=== PATIENT | male | born 1955 | race Caucasian/White ===

== ENCOUNTER 2017-11-07 10:07 | Inpatient (IN) | payer BC ==
--- NOTE | 2017-10-06 16:27 | PAT Medication Instructions ---
Service Date Oct 06, 2017. Current Home Medication List Acetaminophen (Tylenol), 650 MG PO Q6 PRN for Pain Amlodipine (Norvasc), 5 MG PO QAM Fluticasone Propionate (Nasal) (Flonase Allergy Relief), 1 SPRAY MARIA L QAM PRN for PRN Ibuprofen (Advil), 400 MG PO Q6 PRN for Pain Labetalol (Normodyne), 100 MG PO BID Omeprazole (Prilosec), 20 MG PO BID Medication Instructions For Your Scheduled Surgery - Check with surgeon for instructions: Ibuprofen (Advil), 400 MG PO Q6 PRN for Pain - Take the following medications the morning of surgery with a sip of water: Acetaminophen (Tylenol), 650 MG PO Q6 PRN for Pain (okay to take up to 4 hours prior to surgery if needed) Amlodipine (Norvasc), 5 MG PO QAM Fluticasone Propionate (Nasal) (Flonase Allergy Relief), 1 SPRAY MARIA L QAM PRN for PRN (if needed) Labetalol (Normodyne), 100 MG PO BID Omeprazole (Prilosec), 20 MG PO BID - Take the following medications as scheduled the night before surgery: Acetaminophen (Tylenol), 650 MG PO Q6 PRN for Pain (if needed) Labetalol (Normodyne), 100 MG PO BID Omeprazole (Prilosec), 20 MG PO BID Fluticasone Propionate (Nasal) (Flonase Allergy Relief), 1 SPRAY MARIA L QAM PRN for PRN (if needed) If you have any questions please call us at [phone] or [phone] or [phone]
--- NOTE | 2017-11-06 09:40 | HISTORY & PHYSICAL EXAMINATION ---
DATE OF ADMISSION: 11/07/2017 PREOPERATIVE DIAGNOSIS: Primary osteoarthritis of the left shoulder. HISTORY OF PRESENT ILLNESS: Charles is a pleasant 62-year-old male who I did a right total shoulder arthroplasty on about 5 years ago. Unfortunately, he has been having a lot more left shoulder pain. His shoulder pain has gotten progressively worse to the point where he is having trouble doing simple activities away from his body and anything above chest level. He is having a lot of pain at night when he sleeps. X-rays and clinical examination were diagnostic for primary osteoarthritis of the left shoulder. After failing conservative treatment, he has elected to proceed with a left total shoulder arthroplasty. PAST MEDICAL HISTORY: Significant for hypertension and GERD. PAST SURGICAL HISTORY: Significant for bilateral shoulder manipulations about 8 years ago, fistula repair, right total shoulder arthroplasty done 5 years ago. ALLERGIES: None. MEDICATIONS: Include labetalol, omeprazole, and Norvasc. FAMILY HISTORY: Denies. SOCIAL HISTORY: Patient is . He has 2 kids. Denies any tobacco, alcohol, or IV drug use. He is very active. He works on powdered metals. REVIEW OF SYSTEMS: He complains of left shoulder pain. All other pertinent review of systems is negative. PHYSICAL EXAMINATION: GENERAL: He is awake, alert, and oriented x3. He is in no apparent distress. He is very pleasant. HEENT: Pupils equal, round, reactive to light. Extraocular motion intact. Oral mucosa is pink, moist. HEART: Regular rate per radial pulse. LUNGS: Mishel symmetrically bilaterally with no audible breath sounds. ABDOMEN: Soft, nontender, nondistended. MUSCULOSKELETAL: He has about 100 degrees of forward elevation, 90 degrees of abduction. Passive, I can get him little further, but he has lot of crepitus, mostly over the anterior glenohumeral joint line. He has limited internal and external rotation. He is neurovascularly intact. IMAGING DATA: X-rays of the left shoulder do show advanced osteoarthritis with bone on bone articulation, osteophyte formation, and subchondral sclerosis. There is a type B2 glenoid. IMPRESSION: Primary osteoarthritis of the left shoulder. PLAN: We will proceed with a Biomet comprehensive left total shoulder arthroplasty. Postoperatively, he will be placed in an arm sling and kept overnight for postop medical management. He plans to go to physical therapy in [place] upon discharge. [facility]
[~2017-11-07] VITALS: Ht 180.3 cm; Wt 100.0 kg
[~2017-11-07 10:07] MED LIST: ACET-1311 PO; ACETAMINOPHEN 500 MG TAB PO SCH; AMLO5TAB3 PO; CEFAZOLIN 2000MG IV PUSH 15 ML IV SCH; CLONIDINE HCL 100 MCG/ML SYRINGE ONE; FAMOTIDINE 20 MG TAB PO SCH; FLUT0.15 NAE; GABAPENTIN 600 MG PO SCH; IBUP-1050 PO; LABE1TAB28 PO; LACTATED RINGER'S 1000ML 1,000 ML IV SCH; PRLSR20 PO; ROPIVACAINE 0.5% 5 MG/ML 30 ML VIAL ONE; ROPIVACAINE 5MG/ML 30 ML 150 MG, BUPIVACAINE 0.5% MPF INJ 30 ML, EpINEphrine HCL INJ 0.... INFIL SCH
[2017-11-07 10:44] VITALS: BP 156/100; PULSE 69; TEMP 36.4; O2SAT 97; Ht 180.3 cm; Wt 100.0 kg
--- NOTE | 2017-11-07 11:52 | History & Physical Bridge Note ---
H&P Re-Evaluation Bridge Note: I have examined the patient, reviewed the History & Physical and in the interval since the performance of the History & Physical I have noted the following changes of clinical significance: No changes noted
[2017-11-07] MEDS ORDERED: ONDANSETRON INJ 2 MG/ML 2 ML VIAL IV PRN ×2 (12:00→12:45)
[2017-11-07] MEDS ORDERED: FLUTICASONE PROPIONATE NA SPR 16 GM BTL NAE PRN (12:00)
[2017-11-07] MEDS ORDERED: OXYCODONE HCL IR 5 MG TAB (IMMEDIATE RELEASE) PO PRN (12:00)
[2017-11-07] MEDS ORDERED: METOCLOPRAMIDE HCL INJ 5 MG/ML 2 ML VIAL IV PRN (12:00)
[2017-11-07] MEDS ORDERED: NALOXONE HCL 0.4 MG/1 ML VIAL/CARP IV PRN ×2 (12:00→12:45)
[2017-11-07] MEDS ORDERED: BISACODYL 10 MG SUPP PR PRN (12:00)
[2017-11-07] MEDS ORDERED: SOD PHOSPHATE/SOD BIPHOSPHATE ENEMA 132 ML BTL PR PRN (12:00)
[2017-11-07] MEDS ORDERED: MAGNESIUM HYDROXIDE SUSP 30 ML UDC PO PRN (12:00)
[2017-11-07] MEDS ORDERED: MoRPHine SULFATE 2 MG/ML CARP IV PRN (12:00)
--- NOTE | 2017-11-07 12:06 | Discharge Instructions ---
Discharge Instructions Date of Service Nov 07, 2017. Admission Reason for Admission: Left Shoulder Degenerative Joint Disease Discharge Discharge Diagnosis / Problem: Left Total Shoulder Discharge Goals Goal(s): Decrease discomfort, Improve function Activity Recommendations Activity Limitations: as noted below . Instructions / Follow-Up Instructions / Follow-Up Activity and Therapy Recommendations: * Wear your sling for 3 weeks, unless otherwise instructed. You may remove your sling to shower and to dress, but otherwise, you should be in your sling at all times, including while sleeping * The shoulder replacement is very stable and you can use your hand while in the sling * Physical Therapy should start about 3-5 days from your day of surgery. Therapy will last about 8-12 weeks * You were shown a series of exercises in the hospital. Do these exercises daily including the exercises you were shown in physical therapy. Medications: * Narcotic You will likely be sent home from the hospital with a prescription for the narcotic pain medication that worked best throughout your stay. * Other medications may be prescribed for specific circumstances. If you have any questions, please call the office at . * Resume previous home medications unless otherwise instructed Dressing Care: If the incision is not draining then you may leave the garrett open to air. If there is a little bit of drainage or if the garrett are getting stuck on your clothing then cover the incision with a dry dressing. The garrett will be removed at your 2 week follow-up appointment. Showering: You may shower 5 days from the day of surgery. Let the soapy shower water run over the garrett and pat them dry. Do not scrub or soak the incision. Things To Watch For: * Drainage from the incision site that occurs more than one week after your surgery. * Increased redness at the incision site. * Fever above 102 degrees Fahrenheit. * Unusual chest pain or shortness of breath. * Call [facility] at with any of the above problems Follow-Up Visit: Follow-up with Dr. Hutchinson 2 weeks after your day of surgery. An appointment was probably scheduled when you signed-up for surgery in the office. If you have any questions call Office Instructions: More detailed instructions as well as Frequently Asked Questions were provided in a folder by our office when you signed-up for surgery. Please review these instructions when you get home. If you have any further questions or concerns, please feel free to call the office at [phone] Current Hospital Diet Patient's current hospital diet: Regular Diet Discharge Diet Recommended Diet: Regular Diet Pending Studies Studies pending at discharge: no Medical Emergencies . Who to Call and When: Medical Emergencies: If at any time you feel your situation is an emergency, please call 911 immediately. . Non-Emergent Contact Non-Emergency issues call your: Surgeon Call Non-Emergent contact if: wound has increased drainage, wound has increased redness . "Provider Documentation" section prepared by Ned Hutchinson. .
[2017-11-07] MEDS ORDERED: ORTHO JOINT ANESTHETIC ONE (12:36)
[2017-11-07] MEDS ORDERED: BACITRACIN 50000 UNIT VIAL ONE (12:36)
[2017-11-07] MEDS ORDERED: FENTANYL CITRATE INJ 50 MCG/1 ML 2 ML VIAL ONE (12:40)
[2017-11-07] MEDS ORDERED: MIDAZOLAM HCL 1 MG/ML 2ML VIAL ONE (12:40)
[2017-11-07] MEDS ORDERED: FLUMAZENIL 0.1 MG/1 ML 10 ML VIAL IV PRN (12:45)
[2017-11-07] MEDS ORDERED: FENTANYL CITRATE INJ 50 MCG/1 ML 2 ML VIAL IV PRN (12:45)
[2017-11-07] MEDS ORDERED: HYDROmorphone INJ 2 MG/ML SYR/VIAL IV PRN (12:45)
[2017-11-07] MEDS ORDERED: MEPERIDINE HCL 25 MG/ML CARP IV PRN (12:45)
[2017-11-07] MEDS ORDERED: PHENYLEPHRINE 100MCG/ML 5ML SYR IV PRN (12:45)
[2017-11-07] MEDS ORDERED: ATROPINE SULFATE 0.1 MG/ML 5ML SYR IV PRN (12:45)
[2017-11-07] MEDS ORDERED: EpHEDrine SULFATE INJ 50 MG/ML AMP IV PRN (12:45)
[2017-11-07] MEDS ORDERED: LABETALOL HCL IV 5 MG/ML 20ML IV PRN (12:45)
[2017-11-07] MEDS: TRANEXAMIC ACID INJ 1,000 MG x 2 Bags IV SCH ×4 (13:00→16:41)
[2017-11-07] MEDS ORDERED: ROCURONIUM BROMIDE 10 MG/ML 5 ML VIAL ONE (14:32)
[2017-11-07] MEDS ORDERED: EpHEDrine SULFATE 50MG/5ML SYR ONE (14:32)
[2017-11-07] MEDS ORDERED: PHENYLEPHRINE 100MCG/ML 5ML SYR ONE (14:32)
[2017-11-07] MEDS ORDERED: DEXAMETHASONE SOD INJ 4 MG/ML VIAL ONE (14:32)
[2017-11-07] MEDS ORDERED: PROPOFOL IV EMULSION 10 MG/ML 20 ML VIAL ONE (14:32)
[2017-11-07] MEDS ORDERED: ONDANSETRON INJ 2 MG/ML 2 ML VIAL ONE (14:32)
[2017-11-07] MEDS ORDERED: LIDOCAINE HCL 2% 2 ML VIAL (20MG/ML) ONE (14:32)
[2017-11-07] MEDS ORDERED: GLYCOPYRROLATE INJ 0.2 MG/ML VIAL ONE ×2 (14:41→14:49)
[2017-11-07] MEDS ORDERED: NEOSTIGMINE METHYLSULFATE 5 MG/5 ML SYR ONE (14:41)
--- NOTE | 2017-11-07 14:50 | [facility] Post Operative Brief Note ---
Immediate Operative Summary Operative Date Nov 07, 2017. Pre-Operative Diagnosis Primary Osteoarthritis of the Left Shoulder Post-Operative Diagnosis Same as preop Procedure(s) Performed left total shoulder arthroplasty Surgeon Dr. Hutchinson Trial Examiner Surgeon(s) Nico Sexton PA-C Estimated Blood Loss 250ml Findings Consistent with Post-Op Diagnosis Specimens A. Left Femoral Head Anesthesia Type General
--- NOTE | 2017-11-07 15:17 | OPERATIVE REPORT ---
DATE OF OPERATION: 11/07/2017 PREOPERATIVE DIAGNOSIS: Primary osteoarthritis of the left shoulder. POSTOPERATIVE DIAGNOSIS: Primary osteoarthritis of the left shoulder. PROCEDURE: Left total shoulder arthroplasty. SURGEON: Dr. Ned Hutchinson. COLOR BLENDER: Ashish Sexton PA-C, whose assistance was necessary for retraction and closure. ANESTHESIA: General with a left interscalene nerve block. COMPLICATIONS: None. CONDITION: Stable to PACU. INDICATIONS: Charles is a pleasant 62-year-old male who presented to my office with complaints of chronic increasing left shoulder pain. X-rays and clinical examination were diagnostic for primary osteoarthritis of the left shoulder. After failing conservative treatment, he elected to proceed with a left total shoulder arthroplasty. DESCRIPTION OF PROCEDURE: On 11/07/2017, he arrived at [facility] for the above procedure. He was seen in the preoperative holding area and the operative extremity was identified and signed. He was given a preoperative antibiotic and a left interscalene nerve block. He was taken back to the operating room table, laid on the table in supine position and put under general anesthesia. He was then put into the beachchair position. The left shoulder was prepped and draped in sterile fashion. Time-out was done. The patient's operative extremity was properly identified. A deltopectoral approach was used. Dissection was taken down through the fascia and the conjoined tendon was retracted medially and the deltoid was retracted laterally. The long head of biceps tendon was tenodesed to the upper border of the pectoralis major. The subscapularis was then tenotomized off the lesser tuberosity with a centimeter of cuff tissue remaining. The proximal humerus was exposed. A drill was sent down the center of the humeral canal followed by sequential reaming. Sequential reaming was done up to a size 14 mm reamer. Off that reamer, a proximal humeral resection guide was placed and the humerus was resected at 135 degrees of inclination and 30 degrees of retroversion. The surrounding osteophytes were then removed. The glenoid was then exposed. Time was spent doing a complete circumferential labral release. A Probity signature guide was then snapped on to the anterior glenoid. A guide pin was placed in the total shoulder arthroplasty hole. This did set the glenoid at 10 degrees of retroversion to help minimize eccentric reaming. A medium propeller reamer was used to ream the glenoid. A central boss was drilled followed by 3 peripheral peg holes. The final size medium glenoid with a Regenerex peg was then cemented in place with Palacos-G cement. The proximal humerus was then exposed. Sequential broaching up to a size 14 broach was done. Off that broach, a 50 x 21 mm eccentric head was trialed. The shoulder was reduced, brought through a full range of motion and felt to be stable. The shoulder was dislocated. The broach was removed. The final size 14 mm mini pressfit stem was then impacted into place. A 50 x 21 mm eccentric head was then impacted into place. The shoulder was then reduced, brought through a full range of motion and felt to be stable. The subscapularis was then tenodesed back to the lesser tuberosity with transosseous FiberWire sutures and [id number] sutures. Two FiberWire sutures were placed in the lateral rotator interval. The surrounding soft tissues were injected with 100 mL of an orthopedic pain control cocktail. The entire shoulder was irrigated with 3 liters normal saline solution with bacitracin. The axillary nerve was palpated. Hemostasis was obtained. The skin was then closed with 2-0 Vicryl, 3-0 V-Loc suture and garrett. He was placed in a soft dressing, extubated and transferred to a hospital bed and taken to the postanesthesia care unit in stable condition. He tolerated the procedure well. IMPLANTS USED: I used a Biomet comprehensive left total shoulder arthroplasty system with a size 14 mini pressfit stem, size medium glenoid with a Regenerex peg and a 50 x 21 mm eccentric humeral head. I attest to the content of the Intraoperative Record and any orders documented therein. Any exception s are noted below.
--- NOTE | 2017-11-07 15:32 | DIAGNOSTIC IMAGING REPORT ---
LEFT SHOULDER 2 VIEWS CLINICAL HISTORY: Postoperative examination. FINDINGS: 2 views of the left shoulder are obtained. No prior studies are available for comparison at the time of dictation. A left shoulder arthroplasty is in near anatomic alignment. No acute fracture is seen. There are expected postoperative changes overlying the left shoulder including skin clips, subcutaneous gas, and soft tissue swelling. Atelectasis is noted at the left lung base. There is a chronic/healed left 2nd rib fracture. IMPRESSION: Expected postoperative findings status post left shoulder arthroplasty. No acute fracture is seen. Electronically signed by: Adeel Maldonado M.D. 11/07/2017 3:30 PM Dictated Date/Time: 11/07/2017 3:29 PM
--- NOTE | 2017-11-07 15:44 | Anesthesiology Progress Note ---
Anesthesia Post Op Note Date & Time Nov 07, 2017 at 15:44 Vital Signs Pain Intensity: 0 Vital Signs Past 12 Hours Date Time Temp Pulse Resp B/P (MAP) Pulse Ox O2 Delivery O2 Flow Rate FiO2 11/07/17 15:30 53 13 118/72 98 Oxymask 10 11/07/17 15:20 61 14 128/79 100 Oxymask 10 11/07/17 15:14 36.0 67 20 135/80 95 Oxymask 10 11/07/17 10:44 36.4 69 20 156/100 97 Room Air Notes Mental Status: alert / awake / arousable, participated in evaluation Pt Amnestic to Procedure: Yes Nausea / Vomiting: adequately controlled Pain: adequately controlled Airway Patency, RR, SpO2: stable & adequate BP & HR: stable & adequate Hydration State: stable & adequate Anesthetic Complications: no major complications apparent
[2017-11-07 16:25] VITALS: O2SAT 94
[2017-11-07 16:49] VITALS: BP 109/73; PULSE 68; TEMP 36.6; O2SAT 94
[2017-11-07 17:13] VITALS: BP 108/68; PULSE 67; TEMP 36.8; O2SAT 96
[2017-11-07] MEDS: POTASSIUM CHLORIDE INJ 10 MEQ in SODIUM CHLORIDE 0.9% 1000ML 1,000 ML IV SCH (18:02)
[2017-11-07] MEDS: KETOROLAC TROMETHAMINE 30 MG/ML VIAL IV. SCH (18:02)
[2017-11-07] MEDS: CEFAZOLIN IV 2,000 MG in SYRINGE 0 ML IV SCH (20:42)
[2017-11-07] MEDS: PANTOprazole SOD 40 MG TAB PO SCH (20:44)
[2017-11-07] MEDS: DOCUSATE SODIUM 100 MG CAP PO SCH (20:44)
[2017-11-07 20:46] VITALS: BP 108/67; PULSE 72
[2017-11-07] MEDS: LABETALOL HCL 100 MG TAB PO SCH (20:48)
[2017-11-07] MEDS ORDERED: SENNA 8.6 MG TAB PO SCH (21:00)
[2017-11-07] MEDS: ACETAMINOPHEN IV 1,000 MG in EMPTY BAG 0 ML IV SCH (21:15)
[2017-11-07 23:07] VITALS: BP 134/73; PULSE 58; TEMP 36.5; O2SAT 93
[2017-11-08 00:15] VITALS: O2SAT 94
[2017-11-08] MEDS: KETOROLAC TROMETHAMINE 30 MG/ML VIAL IV. SCH ×2 (00:32→06:16)
[2017-11-08 03:15] VITALS: BP 119/66; PULSE 73; TEMP 36.7; O2SAT 91
[2017-11-08] MEDS: POTASSIUM CHLORIDE INJ 10 MEQ in SODIUM CHLORIDE 0.9% 1000ML 1,000 ML IV SCH (04:29)
[2017-11-08] MEDS: CEFAZOLIN IV 2,000 MG in SYRINGE 0 ML IV SCH (04:29)
[2017-11-08] MEDS: ACETAMINOPHEN IV 1,000 MG in EMPTY BAG 0 ML IV SCH (06:16)
[2017-11-08 06:17] LABS: HEMOGLOBIN 14.7 g/dL (14.0-18.0); MEAN CELL VOLUME 85.7 fL (80-100); MEAN PLATELET VOLUME 11.6 fL (7.4-10.4); PLATELET COUNT 154 K/uL (130-400); RED CELL DISTRIBUTION WIDTH SD 40.7 fL (36.4-46.3); WHITE BLOOD COUNT 14.76 K/uL (4.8-10.8)
[2017-11-08 06:50] LABS: CALCIUM 7.9 mg/dl (8.5-10.1); CREATININE 0.96 mg/dl (0.60-1.40); POTASSIUM 3.9 mmol/L (3.5-5.1)
[2017-11-08] MEDS: DOCUSATE SODIUM 100 MG CAP PO SCH (08:25)
[2017-11-08] MEDS: LABETALOL HCL 100 MG TAB PO SCH (08:28)
[2017-11-08 08:42] VITALS: BP 122/77; PULSE 73; TEMP 36.9; O2SAT 93
[2017-11-08] MEDS ORDERED: TRAM-10 PO (08:45)
[2017-11-08] MEDS ORDERED: AMLODIPINE BESYLATE 5 MG TAB PO SCH (09:00)
[2017-11-08] MEDS ORDERED: MULTIVITAMIN TAB PO SCH (09:00)
[2017-11-08] MEDS: PANTOprazole SOD 40 MG TAB PO SCH (09:17)
--- NOTE | 2017-11-08 09:28 | PROGRESS NOTE ---
DATE: 11/08/2017 CHIEF COMPLAINT: Status post left total shoulder arthroplasty postop day #1. PROGRESS: Charles was seen and examined at bedside today. Overall, he is doing very well. He is having very little pain in his shoulder. He was able to get some sleep last night. He has no complaints. OBJECTIVE: EXTREMITIES: Physical examination of the left shoulder, the dressing is clean and dry. He is wearing his sling as instructed. His radial, median and ulnar nerves are checked and intact at his wrist. His axillary nerve was not checked yet. LABS: He has an H and H today of 14.7 and 42.0. His glucose is 119. His vital signs are all stable in room air. He is voiding on his own. X-rays postoperatively of the left shoulder showed the prosthesis to be in anatomic alignment without any evidence of fracture, dislocation or loosening. IMPRESSION: Status post left total shoulder arthroplasty postoperative day #1. PLAN: At this point, he is doing very well and is happy with his progress. He will be seen by physical therapy today for hand, wrist, elbow and pendulum exercises. His pain is well controlled and he will be discharged to home later this morning to follow up with outpatient physical therapy in [place].
[2017-11-08 09:53] VITALS: BP 122/77; PULSE 73; TEMP 36.9; O2SAT 93
--- NOTE | 2017-11-08 11:00 | DISCHARGE SUMMARY ---
DISCHARGE DIAGNOSIS: Primary osteoarthritis of the left shoulder. PROCEDURE: Left total shoulder arthroplasty on 11/07/[address] Ned Hutchinson. DISCHARGE INSTRUCTIONS: 1. Ultram 50 mg every 6 hours as needed for pain. 2. Tylenol 650 mg every 6 hours as needed. 3. Norvasc 5 mg daily. 4. Flonase 1 spray as needed. 5. Advil 400 mg every 6 hours as needed. 6. Labetalol 100 mg twice a day. 7. Prilosec 20 mg twice a day. 8. Left arm sling for 3 weeks. 9. Start physical therapy this week. 10. Follow up with Dr. Hutchinson in 2 weeks. 11. Call the office of Dr. Hutchinson with any questions or concerns. HOSPITAL COURSE: Charles is a pleasant 62-year-old male who presented to my office with chronic increase in left shoulder pain. X-rays and clinical examination were diagnostic for primary osteoarthritis of the left shoulder. After failing conservative treatment, he elected to undergo a left total shoulder arthroplasty. On 11/07/2017, he arrived at [facility] and underwent a left total shoulder arthroplasty without complication. He had a general anesthetic and a left interscalene nerve block. Postoperatively, he was discharged to general orthopedic floor. His hospital course was uneventful. On postop day #1, his H and H was stable at 14.7 and 42.0. He was up and ambulating well with physical therapy. He was able to do hand, wrist, elbow, and pendulum exercises. His pain was well controlled. He was subsequently discharged to home with outpatient physical therapy and the above instructions.
== END 2017-11-08 10:29 | disposition home or self-care (01) | DRG 483 ==
LOC: C.ACU 10:07 → C.3E 12:05 → ENRESERV 15:38
PROVIDERS: ADMIT Orthopaedic Surgery; ATTEND Orthopaedic Surgery
PROC: 0RRK0JZ Replacement of Left Shoulder Joint with Synthetic Substitute, Open Approach (ICD-10-PCS; principal; 2017-11-07 13:00)
DX: M19.012 Primary osteoarthritis, left shoulder (principal); Z96.611 Presence of right artificial shoulder joint; I10 Essential (primary) hypertension; K21.9 Gastro-esophageal reflux disease without esophagitis